=== PATIENT | female | born 1950 | race Caucasian/White ===

== ENCOUNTER 2021-12-12 15:24 | Inpatient (IN) | payer BC ==
[~2021-12-12] VITALS: Ht 160 cm; Wt 58.2 kg
[2021-12-12 15:45] VITALS: BP_SYST 129
--- NOTE | 2021-12-12 15:51 | NUR ---
Triaged pt and placed in waiting room until bed becomes available. Pt stable. Accompanied by daughter.
[2021-12-12 18:54] LABS: BASOPHILS % (AUTO) 0.8 % (0.0-2.0); EOSINOPHILS % (AUTO) 0.2 % (0.0-4.0); HEMATOCRIT 33.7 % (36-48); HEMOGLOBIN 11.1 g/dL (12.0-16.0); LYMPHOCYTES % (AUTO) 19.5 % (20.5-51.5); MEAN CORPUSCULAR HEMOGLOBIN 29 pg (27-31); MEAN CORPUSCULAR HGB CONC 33 % (32-36); MEAN CORPUSCULAR VOLUME 88 fL (79.0-98.0); MONOCYTES # (AUTO) 0.3 K/uL (0.0-1.0); NEUTROPHILS # (AUTO) 3.8 K/uL (1.8-7.7); NEUTROPHILS % (AUTO) 73.5 % (40.0-70.0); PLATELET COUNT (AUTO) 366 K/uL (130-430); RED BLOOD CELL COUNT(AUTO) 3.82 MIL/uL (4.2-6.2); RED CELL DISTRIBUTION WIDTH 15.4 % (9.0-15.0); WHITE BLOOD COUNT (AUTO) 5.2 K/uL (4.8-10.8)
--- NOTE | 2021-12-12 19:32 | NUR ---
PT WALKED IN C/O EPIGASTRIC ABDOMINAL PAIN X6 MONTHS BUT TODAY IT STARTED APPROX 10AM AFTER EATING CHICKEN SOUP. +N/-V. PT IS BEING FOLLOWED BY GI MD WHO THINKS SHE MAY HAVE GALLSTONES.
--- NOTE | 2021-12-12 19:35 | NUR ---
Patient triaged and placed in waiting room. VSS and patient appears in no acute distress at this time. Accompanied by FAMILY, awaiting available bed, and MD notified of need for MSE.
[2021-12-12 19:47] LABS: ANION GAP 9 (5-15); CALCIUM 9.3 mg/dL (8.4-11.0); CHLORIDE 103 mmol/L (98-107); CREATININE 0.86 mg/dL (0.55-1.30); GLUCOSE 149 mg/dL (70-99); SODIUM SERUM 138 mmol/L (136-145); UREA NITROGEN, BLOOD 27 mg/dL (8-21)
[2021-12-12 19:51] LABS: ALANINE AMINOTRANSFERASE 27 U/L (12-78); ALBUMIN 3.6 g/dL (3.4-4.8); AMYLASE 60 U/L (0-100); ASPARTATE AMINOTRANSFERASE 29 U/L (10-37); LIPASE 137 U/L (73-393); TOTAL BILIRUBIN 0.5 mg/dL (0.0-1.0)
--- NOTE | 2021-12-12 20:08 | NUR ---
PT SWABBED FOR COVID AND SENT TO LAB. -SADIE WAGNER
[2021-12-12 21:01] LABS: BILIRUBIN,URINE NEGATIVE (NEGATIVE); BLOOD, URINE NEGATIVE (NEGATIVE); CLARITY/URINE CLEAR (CLEAR); COLOR,URINE YELLOW (YELLOW); GLUCOSE,URINE 3+ (NEGATIVE); KETONES,URINE 1+ (NEGATIVE); LEUKOCYTE ESTERASE ,URINE NEGATIVE (NEGATIVE); NITRITE, URINE NEGATIVE (NEGATIVE); PROTEIN URINE NEGATIVE (NEGATIVE); UROBILINOGEN,URINE 0.2 (0.2-1.0)
[2021-12-12] MEDS ORDERED: ONDANSETRON 4 MG ODT TAB PO ONE (21:15)
--- NOTE | 2021-12-12 21:19 | NUR ---
OK TO GIVE SANDWICH TO PT PER DR. GARCÍA
--- NOTE | 2021-12-12 21:55 | NUR ---
Admit bed requested Patient will be admitted to care of Dr. SUTTON. Admitted to TELE unit. Diagnosis ABDOMINAL PAIN Inpatient (Yes or No) YES Observation (Yes or No) NO Orientation concerns or request close to nursing station (Yes or No) NO Covid Status NEGATIVE On vent or bipap NO Isolation requirements NA Needs a sitter NO From Home (Yes or if No enter name of facility) YES Requires Dialysis (Yes or No) NO Med Rec Completed (Yes of No) NO
--- NOTE | 2021-12-12 22:14 | NUR ---
Placed in room 8 . Placed on athletic monitor, blood pressure machine and pulse oximeter. To gown for exam. Side rails up. Report given to MAYELIN NOEL.
[2021-12-12] MEDS ORDERED: ONDANSETRON HCL 4 MG/2 ML VIAL IVP PRN (22:15)
[2021-12-12] MEDS ORDERED: ACETAMINOPHEN 325 MG TABLET PO PRN (22:15)
[2021-12-12 22:42] LABS: RBC,URINE 0-3 /HPF (0-3)
[2021-12-12 22:43] LABS: BACTERIA,URINE FEW /HPF (None Seen); MUCUS,URINE None Seen /LPF (None Seen); WBC,URINE 0-3 /HPF (0-3); YEAST,URINE Few /HPF (None Seen)
--- NOTE | 2021-12-12 22:58 | NUR ---
# 20 gauge angiocath placed to lfa. Use of asceptic technique. Opsite placed over site. Blood return noted. Blood for lab drawn from site. Flushed with 10 cc of normal saline. No evidence of infiltration noted. Patient tolerated well.
[2021-12-12] MEDS: D5/0.45 NS 1,000 ML IV SCH (23:02)
--- NOTE | 2021-12-12 23:21 | NUR ---
Patient will be admitted to care of [facility]. Admitted telemtry unit. Will go to room 118a. Belongings list completed. Complete and up to date summary report printed. SBAR report to be given to ruy mojica at bedside with opportunity for questions.
[2021-12-12 23:30] VITALS: BP_SYST 119
--- NOTE | 2021-12-12 23:30 | NUR ---
p.receive via the er-dept.pt.presents admit dx:abdomen pain.pt.presents general status stable.respiratory status stable;unlabored@room air.no c/o pain,nausea@present.pt.ambulated to the restroom gait assessed wnl.pt.presents iv access location:lt.forearm:to continue w iv fluids administration.call light/telephone presented/demonstration provided to the pt.call light/telephone placed w/in access of the pt.
--- NOTE | 2021-12-13 01:00 | NUR ---
pt,assessed.pt.quiescent.per flacc pain mgx pt.absent facial grimaces/body posturing.iv access intact;patent.pt.capable to reposition self.call light/telephone w/in access of the pt.
--- NOTE | 2021-12-13 02:00 | NUR ---
pt.assessed.pt.quiescent;somnolent.per flacc pain mgx pt.absent facial grimaces/body posturing.iv access intact;patent iv fluids infusing.call light/telephone placed w/in access of the pt.
--- NOTE | 2021-12-13 04:00 | NUR ---
pt.assessed.pt.assisted to the restroom.gait assessed wnl.no c/o pain,nausea.pt.maintained the npo diet status.call light/ telephone placed w/in access of the pt.
--- NOTE | 2021-12-13 06:15 | NUR ---
pt.assessed.pt.quiescent,resting.no c/o pain,nausea.iv access intact;patent pt.capable to reposition self.iv access intact;patent.call light/telephone w/in access of the pt.
[2021-12-13 07:14] LABS: BASOPHILS % (AUTO) 1.1 % (0.0-2.0); EOSINOPHILS # (AUTO) 0.1 K/uL (0.0-0.4); EOSINOPHILS % (AUTO) 2.2 % (0.0-4.0); HEMOGLOBIN 10.5 g/dL (12.0-16.0); LYMPHOCYTES # (AUTO) 1.3 K/uL (1.0-5.5); LYMPHOCYTES % (AUTO) 34.3 % (20.5-51.5); MEAN CORPUSCULAR HEMOGLOBIN 30 pg (27-31); MEAN CORPUSCULAR HGB CONC 34 % (32-36); MEAN CORPUSCULAR VOLUME 88 fL (79.0-98.0); MONOCYTES # (AUTO) 0.4 K/uL (0.0-1.0); MONOCYTES % (AUTO) 10.2 % (1.7-9.3); NEUTROPHILS # (AUTO) 1.9 K/uL (1.8-7.7); NEUTROPHILS % (AUTO) 52.2 % (40.0-70.0); PLATELET COUNT (AUTO) 334 K/uL (130-430); RED BLOOD CELL COUNT(AUTO) 3.53 MIL/uL (4.2-6.2); RED CELL DISTRIBUTION WIDTH 15.1 % (9.0-15.0); WHITE BLOOD COUNT (AUTO) 3.7 K/uL (4.8-10.8)
[2021-12-13 07:55] VITALS: BP_SYST 124
[2021-12-13 08:21] LABS: ALANINE AMINOTRANSFERASE 26 U/L (12-78); ANION GAP 7 (5-15); ASPARTATE AMINOTRANSFERASE 21 U/L (10-37); CALCIUM 9.1 mg/dL (8.4-11.0); CHLORIDE 104 mmol/L (98-107); CREATININE 0.74 mg/dL (0.55-1.30); GLUCOSE 160 mg/dL (70-99); POTASSIUM 3.9 mmol/L (3.5-5.1); SODIUM SERUM 138 mmol/L (136-145); TOTAL BILIRUBIN 0.7 mg/dL (0.0-1.0); UREA NITROGEN, BLOOD 20 mg/dL (8-21)
--- NOTE | 2021-12-13 10:48 | NUR ---
pt's daughter called and was updated with pt's condition.
[2021-12-13] MEDS: D5/0.45 NS 1,000 ML IV SCH ×2 (11:04→17:36)
[2021-12-13] MEDS ORDERED: PANTOPRAZOLE SODIUM 40 MG TAB PO ONE (12:00)
--- NOTE | 2021-12-13 16:19 | NUR ---
CONSULTATION PAGED/CALLED Reason for Consultation: []abdominal pain Person Who was Notified: []filomena message and sent stat Consulting Physician: [] Dr. Pérez Nurse Recruiter Specialty: []GI Ordering Physician: []Fr. alcaraz
[2021-12-13 17:37] VITALS: BP_SYST 137
[2021-12-13 20:00] VITALS: BP_SYST 118
--- NOTE | 2021-12-14 | NUR ---
NPO after midnight for the Hida scan in the morning. Patient is aware and compliant. continue IV fluids d5 0.45% NS at 100cc/hr.
[2021-12-14] MEDS: D5/0.45 NS 1,000 ML IV SCH ×2 (04:32→20:03)
[2021-12-14] MEDS: PANTOPRAZOLE SODIUM 40 MG TAB PO SCH (09:00)
[2021-12-14 09:23] VITALS: BP_SYST 134
--- NOTE | 2021-12-14 15:10 | NUR ---
0730 Pt. gone to [place] for HIDA 0930 Pt. back to room, aaox4, vss still NPO for second part of HIDA 1130 Down to NM for HIDA 1230 Back to room, ordered clear liquid diet, vss 1500 Pt. with no n/v, pain, SR on monitor. Call light in reach
[2021-12-14 15:46] VITALS: BP_SYST 116
[2021-12-14] MEDS ORDERED: TOP25 PO (18:05)
[2021-12-14] MEDS ORDERED: DONE10TA44 PO (18:05)
[2021-12-14] MEDS ORDERED: CANA1TAB4 PO (18:05)
[2021-12-14] MEDS ORDERED: NORT10CA PO (18:05)
[2021-12-14] MEDS ORDERED: LEVO25TA7 PO (18:05)
[2021-12-14] MEDS ORDERED: ASA81 PO (18:05)
[2021-12-14] MEDS ORDERED: LOSA50TA3 PO (18:05)
[2021-12-14] MEDS ORDERED: GABA-529 PO (18:05)
--- NOTE | 2021-12-14 18:24 | NUR ---
1800 Pt. needs met this shift, vss, visiting with family in room, home meds put into computer, noc shift to call to reconcile. Pt. with no distress, tolerating clear liquid diet.
--- NOTE | 2021-12-14 18:34 | NUR ---
193 Dr Ling paged thru his answering service regarding reconciling meds for pt. Will hand off to noc shift. to follow up.
[2021-12-14 20:00] VITALS: BP_SYST 130
[2021-12-14] MEDS: DONEPEZIL HCL 5 MG TABLET (ARICEPT) PO SCH (20:47)
[2021-12-14] MEDS: GABAPENTIN 100 MG CAPSULE PO SCH (20:47)
[2021-12-15] MEDS: D5/0.45 NS 1,000 ML IV SCH ×3 (04:12→20:40)
[2021-12-15] MEDS: LEVOTHYROXINE SODIUM 0.025 MG TABLET PO SCH (06:13)
[2021-12-15] MEDS: INSULIN LISPRO SLIDING SCALE 100 UNITS/ML VIAL (humaLOG) SUBCUT PRN ×4 (06:20→20:45)
[2021-12-15 07:30] VITALS: BP_SYST 145
--- NOTE | 2021-12-15 07:30 | NUR ---
MORNING ROUNDS: PATIENT AWAKE,LYING ON THE BED. WITH DAUGHTER AT THE BEDSIDE.IV FLUIDS RUNNING AT LEFT FOREARM INTACT. CALL LIGHT WITH IN REACH. BED LOCKED AT LOWEST POSITION. NOT ANY DISTRESS.
[2021-12-15] MEDS: NORTRIPTYLINE HCL 10 MG CAPSULE PO SCH (08:56)
[2021-12-15] MEDS: TOPIRAMATE 25 MG TABLET(TOPAMAX) PO SCH (08:57)
[2021-12-15] MEDS: PANTOPRAZOLE SODIUM 40 MG TAB PO SCH (08:57)
[2021-12-15] MEDS: GABAPENTIN 100 MG CAPSULE PO SCH ×2 (08:57→20:37)
[2021-12-15] MEDS: LOSARTAN POTASSIUM 50 MG TABLET (COZAAR) PO SCH (08:58)
--- NOTE | 2021-12-15 10:30 | NUR ---
GI ROUNDS: DR KEARNEY DISCUSSED PLAN OF CARE TO PATIENT'S DAUGHTER JESSICA AT THE BEDSIDE.DAUGHTER JESSICA PREFERS SURGERY EVALUATION PT'S GI MD SAID SHE HAS GB DISEASE.
[2021-12-15 12:00] VITALS: BP_SYST 132
--- NOTE | 2021-12-15 12:22 | NUR ---
CONSULTATION PAGED REASON FOR CONSULTATION:SURGERY WAS CONSULT CALLED?Y PERSON WHO WAS NOTIFIED:EMANEUL KARIMI CONSULTING PHYSICIAN:FREDY MORALES CUSTOMER ACCOUNT REPRESENTATIVE SPECIALTY:SURGEON CUSTOMER ACCOUNT REPRESENTATIVE PHONE NUMBER:[phone] REQUESTING PHYSICIAN:MELINDA WATKINS
--- NOTE | 2021-12-15 12:30 | NUR ---
INTERNAL MED ROUNDS: DR SUTTON AT THE BEDSIDE AND UPDATED DAUGHTER AND PREFERRED SURGERY EVALUATION.SURGERY CONSULT WAS ORDERED.
--- NOTE | 2021-12-15 16:00 | NUR ---
RN ROUNDS: PATIENT RESTING. NO DISTRESS. AT THE BEDSIDE.
[2021-12-15 17:45] VITALS: BP_SYST 116
--- NOTE | 2021-12-15 18:39 | NUR ---
Evening Rounds: Patient and family at the bedside. No acute distress. Waiting for surgeon to evaluate patient. Surgeon was already paged by size roller operator.
[2021-12-15 20:00] VITALS: BP_SYST 115
[2021-12-15] MEDS: DONEPEZIL HCL 5 MG TABLET (ARICEPT) PO SCH (20:37)
[2021-12-16] MEDS: LEVOTHYROXINE SODIUM 0.025 MG TABLET PO SCH (06:36)
[2021-12-16] MEDS: D5/0.45 NS 1,000 ML IV SCH ×2 (06:40→16:15)
[2021-12-16] MEDS: INSULIN LISPRO SLIDING SCALE 100 UNITS/ML VIAL (humaLOG) SUBCUT PRN ×4 (06:42→20:25)
[2021-12-16 07:44] VITALS: BP_SYST 134
[2021-12-16] MEDS: PANTOPRAZOLE SODIUM 40 MG TAB PO SCH (09:48)
[2021-12-16] MEDS: TOPIRAMATE 25 MG TABLET(TOPAMAX) PO SCH (09:48)
[2021-12-16] MEDS: NORTRIPTYLINE HCL 10 MG CAPSULE PO SCH (09:48)
[2021-12-16] MEDS: GABAPENTIN 100 MG CAPSULE PO SCH ×2 (09:48→20:17)
[2021-12-16] MEDS: LOSARTAN POTASSIUM 50 MG TABLET (COZAAR) PO SCH (09:52)
[2021-12-16 12:30] VITALS: BP_SYST 114
[2021-12-16 15:56] VITALS: BP_SYST 126
--- NOTE | 2021-12-16 16:00 | NUR ---
0800- PT STABLE. NOT IN ACUTE DISTRESS. VITALS STABLE.. IVF INFUSING WELL. NOT IN ACUTE DISTRESS. SAFTEY AD FALL PRECAUTIONS PLACE. 1000- DUE MEDS GIVEN .NO TIN ACUTE DISTRESS. DENIES ANY PAIN. WILL CONTINUE TO MONITOR SEEN Y DR GARCIA
--- NOTE | 2021-12-16 16:02 | NUR ---
PT STABLE NOT IN ACUTE DISTRESS. DAUGHTER ST BED SIDE. IVF INFUSING WELL DAUGHTER AT BED SIDE. POC DISCUSSED WITH DAUGHTER VERBALIZED UNDERSTANDING
[2021-12-16 19:30] VITALS: BP_SYST 118
--- NOTE | 2021-12-16 19:30 | NUR ---
INITIAL NOTE AT INITIAL ASSESSMENT, PATIENT IS RESTING IN BED, STABLE, NO SIGNS OF RESPIRATORY DISTRESS. PATIENT VERBALIZES NO PAIN. SHE HAS FINISHED HER DINNER, AND STATES SHE IS NOT EXPERIENCING ANY ABDOMINAL DISCOMFORT. PLAN OF CARE FOR THE EVENING IS COMMUNICATED WITH THE PATIENT AND HER FAMILY AT BEDSIDE. BED IS LOCKED, ALARMED, AND AT THE LOWEST LEVEL. FALL, AND SAFETY PRECAUTIONS WILL BE IN PLACE THROUGHOUT THE SHIFT.
[2021-12-16] MEDS: DONEPEZIL HCL 5 MG TABLET (ARICEPT) PO SCH (20:17)
--- NOTE | 2021-12-16 21:05 | NUR ---
ROUNDS DR. BRANDON IS AT BEDSIDE SPEAKING TO PATIENT AND HER FAMILY AT THIS TIME.
--- NOTE | 2021-12-16 22:10 | NUR ---
COMMUNICATION W/ DR. EVELYNE STUBBS (INSTRUMENT MECHANIC WEAPONS SYSTEM FOR DR. SUTTON) PAGED BACK AT THIS TIME, HE WAS MADE AWARE THAT PATIENT AND HER FAMILY ARE HOPING TO DISCHARGE THE PATIENT HOME TONIGHT SINCE DR. BRANDON CAME IN EARLIER AND LET THEM KNOW THAT SURGERY IS NOT URGENTLY NECESSARY AT THIS TIME. DR. STUBBS VERBALIZED THAT HE WOUND BE COMFORTABLE WITH THE PATIENT DISCHARGING HOME ONCE SHE TOLERATED A REGULAR 2 GRAM SODIUM DIET. ORDER IS READ BACK, AND VERIFIED. PATIENT, HER FAMILY, AND CHARGE NURSE ARE MADE AWARE.
--- NOTE | 2021-12-16 23:45 | NUR ---
HYGIENE CARE HYGIENE CARE PROVIDED AT THIS TIME, FRESH LINENS ALSO PROVIDED. PATIENT IS REPOSITIONED FOR COMFORT. BED IS LOCKED, ALARMED, AND AT THE LOWEST LEVEL.
[2021-12-17 00:38] VITALS: BP_SYST 117
--- NOTE | 2021-12-17 03:45 | NUR ---
ROUNDS PATIENT IS SLEEPING SOUNDLY, STEADY ON TELE MONITOR.
[2021-12-17] MEDS: INSULIN LISPRO SLIDING SCALE 100 UNITS/ML VIAL (humaLOG) SUBCUT PRN ×2 (06:13→11:28)
[2021-12-17] MEDS: LEVOTHYROXINE SODIUM 0.025 MG TABLET PO SCH (06:13)
--- NOTE | 2021-12-17 06:21 | NUR ---
CLOSING NOTE PATIENT SLEPT WELL THROUGHOUT THE NIGHT. SHE VERBALIZED NO PAIN, AND SHE TOLERATED HER MECHANICAL SOFT DINNER DIET WELL, AND HAD A NORMAL BOWEL MOVEMENT. PATIENT UNDERSTANDS WOULD LIKE HER TO BE ABLE TO TOLERATE A REGULAR 2 GRAM SODIUM DIET FOR BREAKFAST BEFORE BEING DISCHARGED HOME. AT THIS TIME, SHE IS RESTING IN BED, STABLE, NO SIGNS OF RESPIRATORY DISTRESS. CALL LIGHT IS WITHIN REACH. BED IS LOCKED, ALARMED, AND AT THE LOWEST LEVEL. FALL AND SAFETY PRECAUTIONS HAVE BEEN IN PLACE THROUGHOUT THE NIGHT. WILL CONTINUE TO MONITOR UNTIL SHIFT REPORT IS GIVEN AT BEDSIDE TO AM NURSE.
--- NOTE | 2021-12-17 08:00 | NUR ---
OPENING NOTES: RECEIVED FROM COTTON PULLER RN. PATIENT EATING BREAKFAST. BREATHING EVEN AND UNLABORED TO RA. DENIES ANY DISCOMFORT AT THIS TIME. FALL AND SAFETY MEASURES REINFORCED. CALL LIGHT WITHIN REACH.
[2021-12-17 08:33] VITALS: BP_SYST 128
[2021-12-17] MEDS: GABAPENTIN 100 MG CAPSULE PO SCH (08:47)
[2021-12-17] MEDS: NORTRIPTYLINE HCL 10 MG CAPSULE PO SCH (08:47)
[2021-12-17] MEDS: PANTOPRAZOLE SODIUM 40 MG TAB PO SCH (08:47)
[2021-12-17] MEDS: LOSARTAN POTASSIUM 50 MG TABLET (COZAAR) PO SCH (08:48)
[2021-12-17] MEDS: TOPIRAMATE 25 MG TABLET(TOPAMAX) PO SCH (08:48)
--- NOTE | 2021-12-17 11:57 | NUR ---
Called DR. SUTTON (RE: DISCHARGE ORDER): SPOKE TO DR. SUTTON REGARDING DISCHARGE ORDER. PER DR. SUTTON, HE IS ON THE WAY AND WILL SEE THE PATIENT BEFORE PUTTING DISCHARGE ORDER.
[2021-12-17 12:22] VITALS: BP_SYST 125
[2021-12-17 12:39] VITALS: BP_SYST 125
--- NOTE | 2021-12-17 13:15 | NUR ---
D/C Patient Patient and family given medication reconciliation form and D/C instructions. Exit Care provided. Patient verbalized understanding. MD discussed with patient the results and treatment provided. Ambulatory with steady gait for discharge to home. Patient in stable condition, ID band removed. IV catheter removed, intact and dressing applied, no active bleeding. All belongings sent with patient.
== END 2021-12-17 13:10 | disposition home or self-care (01) | DRG 446 ==
LOC: SED 15:24 → STU 22:03
PROVIDERS: ADMIT Internal Medicine; ATTEND Internal Medicine
DX: K82.9 Disease of gallbladder, unspecified (principal); Z96.659 Presence of unspecified artificial knee joint; Z20.822 Contact with and (suspected) exposure to COVID-19; Z90.710 Acquired absence of both cervix and uterus
CPT/HCPCS: 36415; 74181; 76700-TC; 78226; 80053; 81000; 82150; 82962; 83690; 85025; 99285; A9537; G0378